=== PATIENT | male | born 1970 | race American Indian/Alaskan Native ===

== ENCOUNTER 2020-08-05 00:35 | Emergency (ER) | payer BC ==
--- NOTE | 2020-08-05 04:30 | Emergency Department Report ---
ED Back Pain/Injury HPI - General Chief Complaint: Back Pain/Injury Stated Complaint: LEFT SIDE FLANK PAIN Time Seen by Provider: 08/05/20 03:49 Source: patient Limitations: No Limitations - History of Present Illness Initial Comments: 50-year-old -[place] male presents emerged department complaining of 1 to 2-day history of right flank/back pain which is worsened with palpation and range of motion. He states he was seen at his doctor's office about 4 days ago where he had an evaluation for a similar episode chest x-ray was obtained showed some abnormalities which was followed by a CT scan which showed more lymphatic abnormalities some an area of concern today. There was a concern for malignancy so an appointment has been made with an oncologist which he is due to follow-up within the next 4 days. States he wanted pain to be evaluated to make sure that there was nothing that needed to be done at this present time given his new assessment circumstances. Reports no fever, chills, sweats. No nausea, no vomiting, no hemoptysis, no hematemesis, hematochezia. MD Complaint: back pain -: Gradual Similar Symptoms Previously: No Radiation: none Severity: mild, moderate Quality: dull Consistency: constant Improves With: none Worsens With: none Associated Symptoms: other (No saddle paresthesia). denies: difficulty walking, difficulty urinating, incontinence, fever/chills, constipation, abdominal pain, nausea/vomiting, rash, seizure - Related Data Previous Rx's Medication Instructions Recorded Last Taken Type Ketorolac [Toradol] 10 mg PO Q6H PRN #14 tablet 08/05/20 Unknown Rx methOCARBAMOL [Robaxin TAB] 750 mg PO Q8H #20 tablet 08/05/20 Unknown Rx Allergies Allergy/AdvReac Type Severity Reaction Status Date / Time No Known Allergies Allergy Verified 08/05/20 00:47 ED Review of Systems ROS: Stated complaint: LEFT SIDE FLANK PAIN Other details as noted in HPI Comment: All other systems reviewed and negative ED Past Medical Hx - Past Medical History Previous Medical History?: No - Surgical History Past Surgical History?: No - Social History Smoking Status: Never Smoker Substance Use Type: None - Medications Home Medications: Home Medications Medication Instructions Recorded Confirmed Last Taken Type Ketorolac [Toradol] 10 mg PO Q6H PRN #14 tablet 08/05/20 Unknown Rx methOCARBAMOL [Robaxin TAB] 750 mg PO Q8H #20 tablet 08/05/20 Unknown Rx ED Physical Exam - General Limitations: No Limitations General appearance: alert, in no apparent distress - Head Head exam: Present: atraumatic, normocephalic - Eye Eye exam: Present: normal appearance, PERRL, EOMI, scleral icterus, conjunctival injection - ENT ENT exam: Present: mucous membranes moist - Neck Neck exam: Present: normal inspection - Respiratory Respiratory exam: Present: normal lung sounds bilaterally, other (No subcutaneous emphysema). Absent: respiratory distress, rhonchi - Cardiovascular Cardiovascular Exam: Present: regular rate, normal rhythm, normal heart sounds. Absent: systolic murmur, diastolic murmur, rubs, gallop - GI/Abdominal GI/Abdominal exam: Present: soft, normal bowel sounds - Rectal Rectal exam: Present: deferred - Extremities Exam Extremities exam: Present: normal inspection - Back Exam Back exam: Present: normal inspection, tenderness, paraspinal tenderness, other (For range of motion is noted. Pain with palpation to the site of concern. No bruising on examination no rash.). Absent: CVA tenderness (R), CVA tenderness (L), muscle spasm, vertebral tenderness - Neurological Exam Neurological exam: Present: alert, oriented X3 - Psychiatric Psychiatric exam: Present: normal affect, normal mood - Skin Skin exam: Present: warm, dry, intact, normal color. Absent: rash ED Course Vital Signs 08/05/20 08/05/20 00:48 00:51 Temperature 97.8 F Pulse Rate 112 H Respiratory 16 Rate Blood Pressure 160/103 O2 Sat by Pulse 95 Oximetry ED Medical Decision Making - Medical Decision Making Pt presents the emergency department complaining of back pain most consistent with musculoskeletal back Pain Most Consistent with musculoskeletal origin. Differential Diagnosis Includes Lumbar Go Versus Musculoskeletal Spasm, Strain Versus Sciatica. No Back Pain Red Flags on History or Physical. Presentation Not Consistent with Malignancy, Fracture, Cauda Equina, Abdominal Aortic Aneurysm, Viscus Perforation, Pulmonary Embolism, Renal Colic, Pyelonephritis. Patient reports no B symptoms, trauma trauma, incontinence, saddle anesthesia, distal weakness, urinary symptoms and is a febrile. Advised him the importance of keeping his appointment with oncology. This present time if not beneficial to to reevaluate with x-ray ordered or CT scan given he has provided copies of the findings of just a few days ago reports no known new traumatic events precipitating the symptoms. Critical care attestation.: If time is entered above; I have spent that time in minutes in the direct care of this critically ill patient, excluding procedure time. ED Disposition Clinical Impression: Muscular pain, Back pain Disposition: DC-01 TO HOME OR SELFCARE Is pt being admited?: No Does the pt Need Aspirin: No Condition: Stable Instructions: Acute Back Pain, Adult, Musculoskeletal Pain Prescriptions: methOCARBAMOL [Robaxin TAB] 750 mg PO Q8H #20 tablet Ketorolac [Toradol] 10 mg PO Q6H PRN #14 tablet PRN Reason: Pain Referrals: ALMA REYES MD [Primary Care Provider] - 3-5 Days
[2020-08-05 04:43] VITALS: BP 160/105
== END 2020-08-05 04:43 | disposition home or self-care (01) ==
LOC: ED 00:35
DX: M54.9 Dorsalgia, unspecified (principal); M79.10 Myalgia, unspecified site; Z79.899 Other long term (current) drug therapy
CPT/HCPCS: 99282